=== PATIENT | female | born 1990 | race Caucasian/White ===

== ENCOUNTER 2021-10-16 17:04 | Emergency (ER) | payer OTHER, SELFPAY ==
[2021-10-16 17:25] VITALS: BP 117/76; PULSE 76; RESP 18; TEMP 36.2; O2SAT 100
--- NOTE | 2021-10-16 17:29 | ED.EAR ---
HPI - Ear Problem General Chief complaint: Ear Stated complaint: lt ear clogged Time Seen by Provider: 10/16/21 17:29 Source: patient and RN notes reviewed Mode of arrival: ambulatory Limitations: no limitations History of Present Illness HPI Narrative: Dahlia is a 30-year-old female patient who states she feels like she has wax in her left ear. Patient states she is used swimmers eardrops off and on for the last month. She has also used [id number] earwax removal drops. Patient has taken Sudafed occasionally. Patient states that she has had decreased hearing for 1 month. MD Complaint: decreased hearing Location: left ear Related Data Home Medications Medication Instructions Recorded Confirmed sertraline 200 mg PO DAILY 10/16/21 10/16/21 Allergies Allergy/AdvReac Type Severity Reaction Status Date / Time No Known Allergies Allergy Mild Verified 10/16/21 17:31 Review of Systems Review of Systems: CONSTITUTIONAL: Denies body aches, fever, chills, or sweats. EYES: Denies visual changes, redness, or discharge. ENT: Denies rhinorrhea, congestion, sore throat, or otalgia.+ decreased hearing left ear CARDIOVASCULAR: Denies chest pain, palpitations, or edema. RESPIRATORY: Denies cough or dyspnea. GASTROINTESTINAL: Denies abdominal pain, nausea, vomiting, or diarrhea. GENITOURINARY: Denies dysuria or hematuria. SKIN: Denies rash, itching, or wounds. MUSCULOSKELETAL: Denies back pain, joint pain, or myalgia. NEUROLOGIC: Denies headache, numbness, tingling, or weakness. PSYCH: Denies depression or anxiety. All systems reviewed & are unremarkable except as noted in HPI and below Exam Narrative: GENERAL: Well-appearing, well-nourished, and in no acute distress. HEAD: Normocephalic, atraumatic. EYES: EOMI. No redness or drainage. Conjunctivae normal. ENT: Mucous membranes pink and moist. Nares clear. No rhinorrhea. TM dull with minimal bulging on right, no erythema. Left TM opaque with moderate fluid noted. bilateral ear canals are free from cerumen; no impaction noted. Posterior pharynx is erythemic without edema or exudate. Uvula midline. NECK: Normal AROM. Supple. right anterior cervical lymphadenopathy. CHEST: No respiratory distress. MUSCULOSKELETAL: No bony tenderness. EXTREMITIES: Normal range of motion. No edema. SKIN: Warm, dry, no rash. Capillary refill normal. Normal skin turgor. NEURO: No focal deficits. Alert and oriented x3. Gait steady. PSYCH: Normal affect. No signs of depression or anxiety. Course Vital Signs Vital signs: Vital Signs Temperature 36.2 C L 10/16/21 17:25 Pulse Rate 76 10/16/21 17:25 Respiratory Rate 18 10/16/21 17:25 Blood Pressure 117/76 10/16/21 17:25 Pulse Oximetry 100 10/16/21 17:25 Temperature 36.2 C L 10/16/21 17:25 Pulse Rate 76 10/16/21 17:25 Respiratory Rate 18 10/16/21 17:25 Blood Pressure 117/76 10/16/21 17:25 Pulse Oximetry 100 10/16/21 17:25 Medical Decision Making MDM Narrative Medical decision making narrative: Bilateral ear canals are free from cerumen. Left TM is opaque with moderate bulging. Right TM is dull with minimal bulging noted there is no erythema to either TM. Patient will be instructed to take her Sudafed daily. Patient will also be instructed to add Flonase or Rhinocort daily. Patient will be given a 5-day course of prednisone. Patient to follow-up with her primary care physician in 7 to 10 days for continued symptoms Differential Diagnosis Differential Diagnosis: Otitis media, otitis externa, cerumen impaction, serous otitis media Vital Signs Vital Signs: Vital Signs Temperature 36.2 C L 10/16/21 17:25 Pulse Rate 76 10/16/21 17:25 Respiratory Rate 18 10/16/21 17:25 Blood Pressure 117/76 10/16/21 17:25 Pulse Oximetry 100 10/16/21 17:25 Temperature 36.2 C L 10/16/21 17:25 Pulse Rate 76 10/16/21 17:25 Respiratory Rate 18 10/16/21 17:25 Blood Pressure 117/76 11/
== END 2021-10-16 17:54 | disposition home or self-care (01) ==
PROVIDERS: Emergency Provider Nurse Practitioner Family; PCP Nurse Practitioner Family
DX: H65.22 Chronic serous otitis media, left ear (principal)
CPT/HCPCS: 99213; G0463